=== PATIENT | female | born 1980 | race Caucasian/White ===

== ENCOUNTER 2024-06-28 09:36 | Emergency (ER) | payer MEDICAID, OTHER ==
[~2024-06-28] VITALS: Ht 160 cm; Wt 63.5 kg
[~2024-06-28 09:36] MED LIST: LEVO-65 MT
[2024-06-28 09:47] VITALS: O2SAT 99
[2024-06-28 10:11] VITALS: BP 120/78; PULSE 80; RESP 18; TEMP 36.6; O2SAT 100
[2024-06-28 13:18] VITALS: TEMP 97.8
[2024-06-28] MEDS: ONDANSETRON 4MG ODT PO STA (13:18)
[2024-06-28] MEDS: ACETAMINOPHEN 325MG TABLET PO STA (13:18)
[2024-06-28] MEDS ORDERED: NAPR-681 MT (14:43)
[2024-06-28] MEDS ORDERED: D-ME473S50 PO (14:43)
== END 2024-06-28 15:22 | disposition home or self-care (01) ==
LOC: ER 09:36
DX: J06.9 Acute upper respiratory infection, unspecified (principal)
CPT/HCPCS: 99283; Q0162